=== PATIENT | male | born 1995 | race Caucasian/White ===

== ENCOUNTER 2024-01-28 22:33 | Emergency (ER) | payer OTHER ==
[~2024-01-28] VITALS: Wt 54.4 kg
[2024-01-29] MEDS ORDERED: NAPROXEN 250 MG TAB PO ONE (01:45)
== END 2024-01-29 01:50 | disposition home or self-care (01) ==
LOC: ED 22:33
DX: S46.911A Strain of unspecified muscle, fascia and tendon at shoulder and upper arm level, right arm, initial encounter (principal); S16.1XXA Strain of muscle, fascia and tendon at neck level, initial encounter; V80.010A Animal-rider injured by fall from or being thrown from horse in noncollision accident, initial encounter; Y93.52 Activity, horseback riding; Y92.39 Other specified sports and athletic area as the place of occurrence of the external cause; Y99.8 Other external cause status